=== PATIENT | female | born 1965 | race Asian ===

== ENCOUNTER 2022-05-22 16:00 | Inpatient (IN) | payer BC ==
[2022-05-22 17:00] LABS: #Lymphocytes 1.6 thou/uL (1.20-3.40); #Monocytes 0.3 thou/uL (0.11-0.59); #Neutrophils 3.7 thou/uL (1.40-6.50); %Basophils 0.4 % (0.0-1.0); %Eosinophils 0.6 % (0.0-10.0); %Lymphocytes 28.3 % (21.0-51.0); %Monocytes 4.7 % (0.0-10.0); %Neutrophils 66.1 % (42.0-75.0); Hemoglobin 12.9 g/dL (12.0-16.0); Mean Corpuscular HGB CONC 32.9 g/dL (32.0-36.0); Mean Corpuscular Hemoglobin 32.4 pg (27.0-31.0); Mean Corpuscular Volume 98.5 fl (78.0-98.0); Mean Platelet Volume 9.5 fL (7.4-10.4); Platelet Count 161 10x3/uL (130-400); Red Blood Cell (RBC) Count 3.99 mill/uL (4.20-5.40); White Blood Cell (WBC) Count 5.6 10x3/uL (4.8-10.8)
[2022-05-22] MEDS ORDERED: Ondansetron PF 4 MG/2 ML Vial SLOW IVP PRN (17:51)
[2022-05-22] MEDS ORDERED: traMADol HCl 50 MG TAB PO PRN (17:51)
[2022-05-22] MEDS ORDERED: HYDROcodone/Acetaminophen 5/325 mg Tablet PO PRN (17:51)
[2022-05-22] MEDS ORDERED: TETANUS, DIPHTHERIA TOX,ADULT (TDVAX) 0.5 ML VIAL IM ONE (17:51)
[2022-05-22] MEDS ORDERED: Acetaminophen 325 MG TAB PO PRN (17:51)
[2022-05-22] MEDS ORDERED: Communication Order-Pharmacy FS SCH (18:00)
[2022-05-22] MEDS ORDERED: Neomycin-Polymyxin 1 ML AMP ONE (20:10)
[2022-05-22] MEDS ORDERED: Bacitracin Zinc Ointment 30 gm TUBE ONE (20:10)
[2022-05-22] MEDS ORDERED: Bupivacaine PF 0.5% 30 ML VIAL ONE (20:10)
[2022-05-22] MEDS ORDERED: HYDROmorphone 2 MG/ML VIAL ONE (20:18)
[2022-05-22] MEDS ORDERED: Sodium Chloride 0.9% 100 ML ONE (20:22)
[2022-05-22] MEDS ORDERED: CEFAZOLIN 2 GM VIAL ONE (20:22)
[2022-05-22] MEDS ORDERED: Ondansetron PF 4 MG/2 ML Vial ONE (20:46)
[2022-05-22] MEDS ORDERED: Dexamethasone 20 MG/5 ML VIAL ONE (20:46)
[2022-05-22] MEDS ORDERED: Phenylephrine 10 MG/ML VIAL ONE (20:46)
[2022-05-22] MEDS ORDERED: PROPOFOL 200 MG/20 ML VIAL ONE (20:46)
[2022-05-22] MEDS ORDERED: ePHEDrine 50 MG/ML VIAL ONE (20:46)
[2022-05-22] MEDS ORDERED: Ketorolac Tromethamine 30 MG/ML VIAL ONE (20:46)
[2022-05-22] MEDS ORDERED: Bupivacaine 0.25% HCL 30 ML VIAL ONE (22:56)
[2022-05-22 23:37] VITALS: BMI 20.1
[2022-05-23] MEDS: Ketorolac Tromethamine 30 MG/ML VIAL IVP SCH ×3 (04:27→07:20)
[2022-05-23 06:15] LABS: #Lymphocytes 0.5 thou/uL (1.20-3.40); #Monocytes 0.1 thou/uL (0.11-0.59); %Lymphocytes 10.4 % (21.0-51.0); %Neutrophils 88.5 % (42.0-75.0); Hemoglobin 12.2 g/dL (12.0-16.0); Mean Corpuscular HGB CONC 33.7 g/dL (32.0-36.0); Mean Corpuscular Hemoglobin 33.1 pg (27.0-31.0); Mean Corpuscular Volume 98.4 fl (78.0-98.0); Mean Platelet Volume 9.4 fL (7.4-10.4); Platelet Count 145 10x3/uL (130-400); RBC Distribution Width 11.9 % (11.5-14.5); Red Blood Cell (RBC) Count 3.69 mill/uL (4.20-5.40); White Blood Cell (WBC) Count 4.5 10x3/uL (4.8-10.8)
[2022-05-23] MEDS: Aspirin 81 mg Enteric Coated Tablet PO SCH ×2 (09:24→20:13)
[2022-05-23] MEDS ORDERED: VANCOMYCIN IVPB PRN (15:04)
[2022-05-23] MEDS: Morphine 4 MG/ML VIAL SLOW IVP PRN (16:34)
[2022-05-23 17:30] LABS: Anion Gap 13 mmol/L (10-20); BUN (Urea Nitrogen) 15 mg/dL (9.8-20.1); Calc. Creatinine Clearance 73 mL/min (70-130); Calcium 9.4 mg/dL (7.8-10.44); Carbon Dioxide 24 mmol/L (22-29); Chloride 102 mmol/L (98-107); Estimated GFR 94; Glucose 91 mg/dL (70-105); Potassium 3.9 mmol/L (3.5-5.1); Sodium 135 mmol/L (136-145)
[2022-05-23] MEDS ORDERED: Piperacillin/Tazobactam 3.375 GM in Sodium Chloride 0.9% 100 ML IVPB SCH (19:30)
[2022-05-23] MEDS ORDERED: VANCOMYCIN 1.25 GM/250 ML BAG 1.25 GM in Premix Bag 1 BAG IVPB SCH (20:00)
[2022-05-23] MEDS ORDERED: Vancomycin 1 GM in Premix Bag 1 BAG IVPB SCH (21:00)
[2022-05-24] MEDS: Piperacillin/Tazobactam 3.375 GM in Sodium Chloride 0.9% 100 ML IVPB SCH ×4 (00:29→23:48)
[2022-05-24 04:32] LABS: #Lymphocytes 1.3 thou/uL (1.20-3.40); #Monocytes 0.3 thou/uL (0.11-0.59); #Neutrophils 2.8 thou/uL (1.40-6.50); %Basophils 0.3 % (0.0-1.0); %Lymphocytes 29.7 % (21.0-51.0); %Monocytes 7.1 % (0.0-10.0); %Neutrophils 61.9 % (42.0-75.0); Hemoglobin 11.5 g/dL (12.0-16.0); Mean Corpuscular HGB CONC 33.4 g/dL (32.0-36.0); Mean Corpuscular Hemoglobin 33.1 pg (27.0-31.0); Mean Corpuscular Volume 98.9 fl (78.0-98.0); Mean Platelet Volume 9.3 fL (7.4-10.4); Platelet Count 143 10x3/uL (130-400); RBC Distribution Width 11.8 % (11.5-14.5); Red Blood Cell (RBC) Count 3.47 mill/uL (4.20-5.40); White Blood Cell (WBC) Count 4.5 10x3/uL (4.8-10.8)
[2022-05-24 05:05] LABS: Anion Gap 11 mmol/L (10-20); BUN (Urea Nitrogen) 14 mg/dL (9.8-20.1); CRP (Inflammatory) Less than 0.50 mg/dL (= or < 0.5); Calc. Creatinine Clearance 67 mL/min (70-130); Calcium 9.1 mg/dL (7.8-10.44); Carbon Dioxide 26 mmol/L (22-29); Chloride 105 mmol/L (98-107); Estimated GFR 86; Glucose 95 mg/dL (70-105); Sodium 138 mmol/L (136-145)
[2022-05-24] MEDS: Aspirin 81 mg Enteric Coated Tablet PO SCH ×2 (08:49→20:08)
[2022-05-24] MEDS: Vancomycin 1 GM in Premix Bag 1 BAG IVPB SCH ×2 (09:10→20:06)
[2022-05-24] MEDS: Morphine 4 MG/ML VIAL SLOW IVP PRN (17:23)
[2022-05-25] MEDS: Aspirin 81 mg Enteric Coated Tablet PO SCH ×2 (08:15→19:55)
[2022-05-25] MEDS: Piperacillin/Tazobactam 3.375 GM in Sodium Chloride 0.9% 100 ML IVPB SCH ×2 (08:15→15:39)
[2022-05-25 10:03] LABS: Vancomycin, Trough 13.4 ug/mL
[2022-05-25] MEDS: Vancomycin 1 GM in Premix Bag 1 BAG IVPB SCH (10:48)
[2022-05-25] MEDS: Morphine 4 MG/ML VIAL SLOW IVP PRN (15:50)
[2022-05-26] MEDS: Piperacillin/Tazobactam 3.375 GM in Sodium Chloride 0.9% 100 ML IVPB SCH ×3 (01:02→16:35)
[2022-05-26] MEDS: Aspirin 81 mg Enteric Coated Tablet PO SCH ×2 (08:44→20:13)
[2022-05-26] MEDS: Morphine 4 MG/ML VIAL SLOW IVP PRN (18:31)
[2022-05-27] MEDS: Piperacillin/Tazobactam 3.375 GM in Sodium Chloride 0.9% 100 ML IVPB SCH ×2 (00:06→08:17)
[2022-05-27] MEDS: Aspirin 81 mg Enteric Coated Tablet PO SCH (08:23)
[2022-05-27 10:22] VITALS: BP 111/73; TEMP 97.6
== END 2022-05-27 16:16 | disposition home or self-care (01) | DRG 506 ==
LOC: SDC 16:00 → MSONC 17:51 → OBSVTOIN 05-23 15:03
PROVIDERS: ADMIT Orthopaedic Surgery Hand Surgery; ATTEND Orthopaedic Surgery Hand Surgery
PROC: 0R9W0ZZ Drainage of Right Finger Phalangeal Joint, Open Approach (ICD-10-PCS; principal; 2022-05-22)
PROC: 0PBT0ZZ Excision of Right Finger Phalanx, Open Approach (ICD-10-PCS; 2022-05-22)
PROC: 02HV33Z Insertion of Infusion Device into Superior Vena Cava, Percutaneous Approach (ICD-10-PCS; 2022-05-23)
PROC: B5181ZA Fluoroscopy of Superior Vena Cava using Low Osmolar Contrast, Guidance (ICD-10-PCS; 2022-05-23)
PROC: B548ZZA Ultrasonography of Superior Vena Cava, Guidance (ICD-10-PCS; 2022-05-23)
DX: M86.8X4 Other osteomyelitis, hand (principal); M00.9 Pyogenic arthritis, unspecified; Z20.822 Contact with and (suspected) exposure to COVID-19
CPT/HCPCS: 36415; 36569; 80048; 80202; 85025; 85652; 86140; 87070; 87205; G0378; J1100; J1170; J1885; J2270; J2370; J2405; J2543; J2704; J3370; J3370-JW; J3490; S0020; U0003; U0005

== ENCOUNTER 2022-05-28 12:36 | Day surgery (SDC) | payer BC ==
[2022-05-27 15:24] VITALS: BMI 20.1
[2022-05-28] MEDS ORDERED: HYDROmorphone 2 MG/ML VIAL ONE (12:45)
[2022-05-28] MEDS ORDERED: Bupivacaine PF 0.5% 30 ML VIAL ONE (13:23)
[2022-05-28] MEDS ORDERED: Neomycin-Polymyxin 1 ML AMP ONE (13:23)
[2022-05-28] MEDS ORDERED: Bacitracin Zinc Ointment 30 gm TUBE ONE (13:23)
[2022-05-28] MEDS ORDERED: Sodium Chloride 0.9% 100 ML ONE (14:27)
[2022-05-28] MEDS ORDERED: CEFAZOLIN 2 GM VIAL ONE (14:27)
[2022-05-28] MEDS ORDERED: Ketorolac Tromethamine 30 MG/ML VIAL ONE (14:50)
[2022-05-28] MEDS ORDERED: ePHEDrine 50 MG/ML VIAL ONE (14:50)
[2022-05-28] MEDS ORDERED: PROPOFOL 200 MG/20 ML VIAL ONE (14:50)
[2022-05-28] MEDS ORDERED: Lidocaine 1% PF 5 ML VIAL ONE (14:50)
[2022-05-28] MEDS ORDERED: Dexamethasone 20 MG/5 ML VIAL ONE (14:50)
[2022-05-28] MEDS ORDERED: Ondansetron PF 4 MG/2 ML Vial ONE (14:50)
[2022-05-28] MEDS ORDERED: MINERAL OIL/WHITE PETROLATUM 3.5 GM TUBE ONE (14:56)
[2022-05-28] MEDS ORDERED: hydrALAZINE 20 MG/ML VIAL ONE (16:26)
== END 2022-05-28 17:40 | disposition home or self-care (01) ==
LOC: SDC 12:36
PROVIDERS: ATTEND Orthopaedic Surgery Hand Surgery
PROC: 0PBT0ZZ Excision of Right Finger Phalanx, Open Approach (ICD-10-PCS; principal; 2022-05-28)
DX: M00.9 Pyogenic arthritis, unspecified (principal); M86.8X4 Other osteomyelitis, hand; Z79.2 Long term (current) use of antibiotics
CPT/HCPCS: J0360; J1100; J1170; J1885; J2405; J2704; J3490; S0020